=== PATIENT | female | born 1985 | race Caucasian/White ===

== ENCOUNTER 2023-05-04 15:47 | Emergency (ER) | payer OTHER, SELFPAY ==
[2023-05-04] VITALS (18 sets, daily range): BP systolic 148–171; BP diastolic 90–116; PULSE 77; RESP 18; TEMP 37.3; O2SAT 94–99
--- NOTE | 2023-05-04 17:29 | ED_ITS ---
HPI - Abdominal Pain General Chief Complaint: Abdominal Pain Stated Complaint: ABDOMINAL PAIN, BACK PAIN Time Seen by Provider: 05/04/23 17:29 Source: patient Mode of arrival: ambulance Limitations: no limitations History of Present Illness HPI narrative: Patient presents to emergency department complaining of abdominal pain. Patient states she's had abdominal pain and diarrhea for a week. She went to [facility] yesterday, she had blood work, and a CAT scan Of the abdomen show done which showed mesenteric adenitis. The patient went home on Percocet. Patient returns today because she continues to have diarrhea none bloody and abdominal pain. She states she has stage IV colon cancer status post resection and is currently on chemotherapy. Her oncologist is Dr. Whitmore. She states her oncologist called in some Cipro for her to take. Patient has not able to ride a stool sample. She denies any fever, chills. She states she has some dysuria and is concerned that she could have a urinary tract infection. The urinalysis at [facility] was sent for culture. Patient states her heart function tests are always slightly elevated. Related Data Previous Rx's Medication Instructions Recorded ciprofloxacin HCl 500 mg tablet 500 mg PO BID #14 tabs 05/04/23 (Cipro) metronidazole 500 mg tablet 500 mg PO TID #30 tabs 05/04/23 Allergies Allergy/AdvReac Type Severity Reaction Status Date / Time adipex AdvReac Intermediate Uncoded 05/04/23 15:49 Review of Systems 2 ROS Status of ROS 10 or more systems reviewed and unremarkable except as noted in history and below [facility] Social History Smoking status: Current some day smoker Exam Narrative Exam Narrative: Nurses notes and vital signs reviewed and patient is not hypoxic. General: Nontoxic, allopecia, and in no apparent distress. Skin: Warm, dry, no pallor noted. No Rash Head: Normocephalic, atraumatic. Neck: Supple, non-tender. Eye: Pupils are equal, round and EOMI. No scleral icterus. Ears, Nose, Mouth, and Throat: TM clear, no posterior oropharynx erythema or nasal mucosal hypertrophy, uvula is mid-line Oral mucosa is moist Cardiovascular: Regular Rate and Rhythm without murmur, gallop or rub. Respiratory: No accessory muscle use or respiratory distress. Lungs are clear to auscultation, no wheezing, rales or rhonchi Chest Wall: no tenderness Back: No midline thoracic or lumbar vertebral tenderness. No CVA tenderness Musculoskeletal: normal ROM, no calf or popliteal tenderness, no lower extremity edema/swelling GI: Abdomen is soft, non-distended. Normal bowel sounds. Mild left lower tenderness to palpation. No rebound, guarding, or rigidity noted. no Peritoneal signs Neurological: A&O x4. No cranial nerve dysfunction observed. No truncal ataxia. Moves all extremities. Sensation intact. Psychiatric: Cooperative and interactive. Normal mood and affect. Constitutional Vital Signs, click to edit/add: Last Vital Signs Temp 99.1 F 05/04/23 15:50 Pulse 77 05/04/23 15:50 Resp 18 05/04/23 15:50 BP 165/101 H 05/04/23 19:30 Pulse Ox 98 05/04/23 19:30 O2 Del Method Room Air 05/04/23 15:50 Course Vital Signs Vital signs: Vital Signs Temperature 99.1 F 05/04/23 15:50 Pulse Rate 77 05/04/23 15:50 Respiratory Rate 18 05/04/23 15:50 Blood Pressure 148/90 H 05/04/23 15:50 Pulse Oximetry 98 05/04/23 15:50 Oxygen Delivery Method Room Air 05/04/23 15:50 Temperature 99.1 F 05/04/23 15:50 Pulse Rate 77 05/04/23 15:50 Respiratory Rate 18 05/04/23 15:50 Blood Pressure 165/101 H 05/04/23 19:30 Pulse Oximetry 98 05/04/23 19:30 Oxygen Delivery Method Room Air 05/04/23 15:50 MDM - Abdominal Pain MDM Narrative Medical decision making narrative: Patient was given IV fluids, Dilaudid and Zofran. Patient was comfortable and this helped with her pain and her nausea. Patient was not able to give us a stool sample. I discussed with the patient the CT scan results from yesterday which showed adenitis. Patient states her color just had presented a prescription for Cipro. Patient is nontoxic, abdomen is benign and nonsurgical. An effort to cover the patient for a gastrointestinal pathogens and she will be started on Cipro, and Flagyl. She was given 1 dose of IV antibiotics here patient will continue to try to give us a stool sample. Patient has Percocet at home for pain. She will continue to take it. pt will follow up with primary care doctor or return to the emergency Department with any other problems or concerns. At this time the patient is without objective evidence of an acute process requiring hospitalization or inpatient management. The patient has remained hemodynamically stable. No additional indication for emergent studies at this time. I answered all questions. Discussed discharge instructions including standard anticipatory guidance and what should prompt a return to the emergency department, including if they get worse are not getting better or develops any new or concerning symptoms. I've given them specific time frame in which to follow-up, and who to follow-up with. The patient demonstrates understanding. Patient is nontoxic and stable for discharge with outpatient follow-up. This note was created with the assistance of a speech recognition program. A lthough the intention is to generate documents that actually reflects the content of the visit, no guarantees can be provided that every mistake has been identified and corrected by editing. Differential Diagnosis Differential diagnosis: Likely abdominal pain, gastroenteritis and small bowel obstruction Medical Records Attestation: I reviewed the patient's medical records. Medical records narrative: And corrected is from [facility] where reviewed and for part of the medical decision making. Lab Data Attestation: I reviewed the patient's lab results. Labs: Lab Results 05/04/23 05/04/23 Range/Units 17:22 17:55 WBC 7.5 (4.0-11.0) 10^3/uL RBC 4.01 L (4.20-5.40) 10^6/uL Hgb 11.8 L (12.0-16.0) g/dL Hct 37.9 (36.0-48.0) % MCV 94.5 (81.0-99.0) fL MCH 29.4 (26.7-34.0) pg MCHC 31.1 (29.9-35.2) g/dL RDW 15.8 H (11.0-15.0) % Plt Count 174 (150-450) 10^3/uL MPV 10.3 (9.5-13.5) fL Neut % (Auto) 67.3 (43.0-75.0) % Lymph % (Auto) 22.7 (20.5-60.0) % [place] % (Auto) 7.7 (1.7-12.0) % Eos % (Auto) 1.3 (0.9-7.0) % Baso % (Auto) 0.7 (0.2-2.0) % Neut # (Auto) 5.1 (1.4-6.5) 10^3/uL Lymph # (Auto) 1.7 (1.2-3.8) 10^3/uL [place] # (Auto) 0.6 (0.3-0.8) 10^3/uL Eos # (Auto) 0.1 (0.0-0.7) 10^3/uL Baso # (Auto) 0.1 (0.0-0.1) 10^3/uL Abs Immat Gran (auto) 0.02 (0.00-0.03) 10^3/uL Imm/Tot Granulo (auto) 0.3 (0.0-0.5) % Sodium 138 (136-145) mmol/L Potassium 3.6 (3.5-5.1) mmol/L Chloride 103 (98-107) mmol/L Carbon Dioxide 27.9 (21.0-32.0) mmol/L Anion Gap 10.7 BUN 11.0 (7.0-18.0) mg/dL Creatinine 0.67 (0.55-1.02) mg/dL Est GFR ( Amer) >60 (>=60) Est GFR (Non-Af Amer) >60 (>=60) BUN/Creatinine Ratio 16.4 Glucose 100 (74-106) mg/dL Lactate 1.4 (0.4-2.0) mmol/L Calcium 9.4 (8.5-10.1) mg/dL Total Bilirubin 0.7 (0.2-1.0) mg/dL AST 40 H (15-37) U/L ALT 75 H (14-59) U/L Alkaline Phosphatase 71 (46-116) U/L Total Protein 7.6 (6.4-8.2) g/dL Albumin 3.7 (3.4-5.0) g/dL Globulin 3.9 g/dL Albumin/Globulin Ratio 0.9 Urine Color Lt. yellow (YELLOW) Urine Clarity Clear (CLEAR) Urine pH 6.0 (5.0-9.0) Ur Specific [place] >=1.030 A (1.005-1.025) Urine Protein Negative (NEG/TRACE) mg/dL Urine Glucose (UA) Negative (NEGATIVE) mg/dL Urine Ketones Negative (NEGATIVE) mg/dL Urine Occult Blood Negative (NEGATIVE) Urine Nitrite Negative (NEGATIVE) Urine Bilirubin Negative (NEGATIVE) Urine Urobilinogen 0.2 (0.2-1.0) EU/dL Ur Leukocyte Esterase Small A (NEGATIVE) Urine RBC 2-5 A (0-2) #/HPF Urine WBC 5-10 A (NONE SEEN) #/HPF Ur Squamous Epith Cells Few A (NONE/RARE) #/LPF Urine Crystals None seen (None Seen) #/HPF Urine Bacteria Small A (NONE SEEN) #/HPF Urine Casts None seen (NONE SEEN) #/LPF Urine Mucus None seen (NONE SEEN) Ur Culture Indicated? Yes Discharge Plan Discharge Chief Complaint: Abdominal Pain Clinical Impression: UTI (urinary tract infection), Diarrhea, Mesenteric adenitis Patient Disposition: Home, Self-Care Time of Disposition Decision: 20:28 Condition: Good Mode of Transportation: Private Vehicle Prescriptions / Home Meds: New ciprofloxacin HCl [Cipro] 500 mg tablet 500 mg PO BID Qty: 14 0RF metronidazole 500 mg tablet 500 mg PO TID Qty: 30 0RF Instructions: Urinary Tract Infection in Women (ED), Acute Abdominal Pain (ED), Mesenteric Adenitis (ED) Stand Alone Forms: Portal Instructions Referrals: PAM DELEON [Primary Care Provider] - 1 week
[2023-05-04 17:47] LABS: Basophils Absolute Auto 0.1 10^3/uL (0.0-0.1); Basophils Percent Auto 0.7 % (0.2-2.0); Eosinophils Absolute Auto 0.1 10^3/uL (0.0-0.7); Eosinophils Percent Auto 1.3 % (0.9-7.0); Hematocrit 37.9 % (36.0-48.0); Hemoglobin 11.8 g/dL (12.0-16.0); Immature Granulocytes Abs Auto 0.02 10^3/uL (0.00-0.03); Immature Granulocytes Pct Auto 0.3 % (0.0-0.5); Lymphocytes Absolute Auto 1.7 10^3/uL (1.2-3.8); Lymphocytes Percent Auto 22.7 % (20.5-60.0); Mean Corpuscular HGB Conc 31.1 g/dL (29.9-35.2); Mean Corpuscular Hemoglobin 29.4 pg (26.7-34.0); Mean Corpuscular Volume 94.5 fL (81.0-99.0); Mean Platelet Volume 10.3 fL (9.5-13.5); Monocytes Absolute Auto 0.6 10^3/uL (0.3-0.8); Monocytes Percent Auto 7.7 % (1.7-12.0); Neutrophils Absolute Auto 5.1 10^3/uL (1.4-6.5); Neutrophils Percent Auto 67.3 % (43.0-75.0); Platelet Count 174 10^3/uL (150-450); Red Blood Count 4.01 10^6/uL (4.20-5.40); Red Cell Distribution Width 15.8 % (11.0-15.0); White Blood Count 7.5 10^3/uL (4.0-11.0)
[2023-05-04] MEDS: 0.9 % SODIUM CHLORIDE 1,000 ML 999 ML IV (17:53)
[2023-05-04] MEDS: ONDANSETRON PF 4 MG/2 ML VIAL IV ×2 (17:54→21:28)
[2023-05-04] MEDS: HYDROMORPHONE HCL 1 MG/ML CARTRIDGE IVP (17:54)
[2023-05-04 17:59] LABS: Lactate/Lactic Acid 1.4 mmol/L (0.4-2.0)
[2023-05-04 18:05] LABS: Alanine Aminotransferase 75 U/L (14-59); Albumin Globulin Ratio 0.9; Albumin Level 3.7 g/dL (3.4-5.0); Alkaline Phosphatase 71 U/L (46-116); Anion Gap 10.7; Aspartate Amino Transferase 40 U/L (15-37); BUN Creatinine Ratio 16.4; Bilirubin Total 0.7 mg/dL (0.2-1.0); Calcium 9.4 mg/dL (8.5-10.1); Carbon Dioxide 27.9 mmol/L (21.0-32.0); Chloride 103 mmol/L (98-107); Estimated GFR (African America >60 (>=60); Estimated GFR (Non-African Ame >60 (>=60); Globulin 3.9 g/dL; Glucose 100 mg/dL (74-106); Potassium 3.6 mmol/L (3.5-5.1); Sodium 138 mmol/L (136-145); Total Protein 7.6 g/dL (6.4-8.2)
--- NOTE | 2023-05-04 18:28 | XR_ITS ---
The [address] [address] Patient Name: ALESSANDRA MCADAMS MRN: [id number] date: 1985 Sex: F Assigned Patient Location: ER Current Patient Location: ER Accession/Order Number: [id number] Exam Date: 05/04/2023 18:15 Report Date: 05/04/2023 18:36 At the request of: PETE BLACKWELL Procedure: XR acute abdomen series EXAMINATION: XR acute abdomen series HISTORY: Abdominal pain COMPARISON: None. TECHNIQUE: AP chest and 3 views of the abdomen FINDINGS: The lung parenchyma is free of consolidation or infiltrate. No pneumothorax or pleural effusion. Right-sided central venous access port. The cardiac, mediastinal and hilar contours are normal. The bowel gas pattern is nonobstructed. No visualized intra-abdominal calcification or discrete free air. The visualized osseous structures exhibit no gross abnormality. XR/XR acute abdomen series IMPRESSION: No visualized gross acute abnormality Electronically authenticated by: FAY MONACO Date: 05/04/2023 18:36
[2023-05-04 18:42] LABS: Bilirubin Urine NEGATIVE (NEGATIVE); Blood Urine NEGATIVE (NEGATIVE); Clarity Urine CLEAR (CLEAR); Color Urine LT. YELLOW (YELLOW); Glucose Urine UA NEGATIVE (NEGATIVE); Ketones Urine NEGATIVE (NEGATIVE); Leukocyte Esterase Urine SMALL (NEGATIVE); Nitrite Urine NEGATIVE (NEGATIVE); Protein Urine NEGATIVE (NEG/TRACE); Specific Gravity Urine >=1.030 (1.005-1.025); Urobilinogen Urine 0.2 EU/dL (0.2-1.0)
[2023-05-04 18:47] LABS: Urine Microscopic Indicated YES
[2023-05-04 18:53] LABS: Bacteria Urine SMALL #/HPF (NONE SEEN); Cast Seen? NONE SEEN #/LPF (NONE SEEN); Crystals Seen? None Seen #/HPF (None Seen); Mucus Urine NONE SEEN (NONE SEEN); Squamous Epithelial Cell Urine FEW #/LPF (NONE/RARE); Urine Culture Indicated YES
[2023-05-04] MEDS: METRONIDAZOLE/SODIUM CHLORIDE 500 MG/100 ML PREMIX 100 MG IV (20:13)
[2023-05-04] MEDS: CIPROFLOXACIN IN 5 % DEXTROSE 400 MG/200 ML PIGGYBACK 200 MG IV (21:25)
[2023-05-04] MEDS: HYDROMORPHONE HCL 2 MG/ML VIAL 1 MG IV (21:28)
== END 2023-05-04 22:40 | disposition home or self-care (01) ==
PROVIDERS: Emergency Provider Emergency Medicine; PCP Family Medicine
DX: N39.0 Urinary tract infection, site not specified (principal); R19.7 Diarrhea, unspecified; I88.0 Nonspecific mesenteric lymphadenitis; C18.9 Malignant neoplasm of colon, unspecified; Z90.49 Acquired absence of other specified parts of digestive tract; Z79.899 Other long term (current) drug therapy; F17.210 Nicotine dependence, cigarettes, uncomplicated
CPT/HCPCS: 36415; 74022; 80053; 81001; 83605; 85025; 87086; 87507; 96361; 96365; 96366; 96368; 96375; 96376; 99285; J1170